=== PATIENT | female | born 2005 | race Hispanic/Latino ===

== ENCOUNTER 2024-08-01 17:14 | Emergency (ER) | payer OTHER, SELFPAY ==
[2024-08-01 17:16] VITALS: BP 128/75
[2024-08-01 17:35] LABS: % Basophils 0.4 % (0-2); % Eosinophils 3.6 % (0-6); % Immature Granulocytes 0.4 % (0-0.5); % Monocytes 8.4 % (1.7-9.3); % Neutrophils 50.2 % (42.2-75.2); Absolute Eosinophils 0.3 10^3/uL (0-0.7); Absolute Lymphocytes 2.9 10^3/uL (1.2-3.4); Absolute Monocytes 0.7 10^3/uL (0.1-0.6); Absolute Neutrophils 3.9 10^3/uL (1.4-6.5); Hematocrit 40.1 % (37.0-47.0); Hemoglobin 13.2 g/dL (12.0-16.0); Mean Corp Hgb Conc. 32.9 g/dL (33.0-37.0); Mean Corpuscular Hgb 27.2 pg (27.0-31.0); Mean Corpuscular Volume 82.7 fL (81.0-99.0); Nucleated Red Blood Cells % 0 %; Platelet Count 274 10^3/uL (130-400); Red Blood Cell Count 4.85 10^6/uL (4.20-5.40); Red Cell Dist. Width 13.5 % (11.5-14.5); White Blood Cell Count 7.8 10^3/uL (4.8-10.8)
[2024-08-01 17:45] LABS: HCG, Serum Qualitative Screen Negative
[2024-08-01 17:50] LABS: ALT (SGPT) 46 U/L (0-35); AST (SGOT) 26 U/L (14-36); Albumin 4.2 g/dl (3.5-5.0); Alkaline Phosphatase 86 U/L (38-126); Blood Urea Nitrogen 9 mg/dl (7-17); Calcium 9.5 mg/dl (8.4-10.2); Carbon Dioxide 24 mmol/L (22-30); Chloride 104 mmol/L (98-107); Glucose 101 mg/dl (70-99); Lipase 77 U/L (23-300); Potassium 4.3 mmol/L (3.5-5.1); Sodium 137 mmol/L (135-145); Total Bilirubin 0.3 mg/dl (0.2-1.3); Total Protein 7.1 g/dl (6.3-8.2); eGFR > 60.00
[2024-08-01 17:56] LABS: Urine Albumin 1+ (Neg - Trace); Urine Bilirubin Negative (Negative); Urine Character Clear (Clear); Urine Color Yellow; Urine Glucose Negative (Negative); Urine Ketone Negative (Negative); Urine Leukocyte Negative (Negative); Urine Nitrite Negative (Negative); Urine Occult Blood 1+ (Negative); Urine Specific Gravity 1.025 (<1.030); Urine Urobilinogen Negative (Neg - 1+)
[2024-08-01 18:22] LABS: Urine Bacteria Few (Negative); Urine Red Blood Cell 0-2 /HPF (0-2); Urine Squamous Cell 21-25 /LPF (Few); Urine White Cell 0-2 /HPF (0-5)
--- NOTE | 2024-08-01 18:45 | ED.GENMED ---
History of Present Illness
General
Chief Complaint: Abdominal Pain
Source: patient
Time Seen by Provider: 08/01/24 18:29
History of Present Illness
History of Present Illness:
This patient is a 19-year-old female presents emergency department complaints of pain. She states she first noted what felt like menstrual cramps on evening. She felt fine on Friday and then Friday evening she developed pain in the
periumbilical and just to the left of that area. She notes it is much worse when she stands up and walks or moves around. She describes it as a 'pulling' sensation. She says now her back is starting to hurt because she has been hunched over when
walking because it hurts so much. Her last menstrual period was June 28 and she notes that she has a history of irregular periods she denies vaginal bleeding or discharge. She denies urinary symptoms, flank pain, chest pain, dyspnea, nausea,
vomiting, fever, chills, or other complaints.
Past History
Past History
ED Past Surgical History: None
Social History
Tobacco: Non-smoker
Alcohol: None
Drug: None
Personal: Single
Living: with family
Employment: Employed
Phy Exam
Physical Exam
Physical Exam:
GENERAL: Alert , in no apparent distress
EYE: pupils equal and reactive
NECK: Supple, no significant adenopathy.
ENT: o/p clr, mmm.
CARDIAC: Regular rate and rhythm .
LUNGS: Clear breath sounds bilaterally, no acute respiratory distress, no wheezes/rales/rhonchi
ABDOMEN: Soft, mild periumbilical and left mid quadrant tenderness, no r/g, no cvat
NEUROLOGICAL: Alert and oriented, no focal neuro deficits
SKIN: Warm and dry, skin intact.
MUSCULOSKELETAL: No edema, well perfused.
PSYCH: Normal and appropriate interaction.
Course
Orders/Labs/Results
Orders:
Orders
08/01/24 17:15
Test Result ONCE
08/01/24 17:26
Complete Blood Count/With Diff Urgent
Comprehensive Metabolic Panel Urgent
HCG, Serum Qualitative Screen Urgent
Lipase Urgent
08/01/24 17:28
Urinalysis Reflex To Culture Urgent
Date Specimen was Collected: 08/01/24
Time Specimen was Collected: 17:16
Urine Microscopic Reflex Cult Urgent
08/01/24 18:44
CT Abd/Pel (IV only)-DH only Urgent
Comment:
Reason For Exam: periumbilical/L sided abd pain
Ketorolac [Toradol] 15 mg IV NOW STA
Abnormal Lab Results
08/01/24 08/01/24
17:26 17:28
MCHC 32.9 L g/dL
(33.0-37.0)
Absolute Monos (auto) 0.7 H 10^3/uL
(0.1-0.6)
Creatinine 0.5 L mg/dL
(0.6-1.0)
Glucose 101 H mg/dl
(70-99)
ALT 46 H U/L
(0-35)
Ur Occult Blood Reflex 1+ A
(Negative)
Urine Bacteria (Reflex) Few A
(Negative)
Urine Albumin (Reflex) 1+ A
(Neg - Trace)
08/01/24 17:26
08/01/24 17:26
Vital Signs
Initial and Last Documented VS:
Initial Vital Signs
Temp Pulse Resp BP Pulse Ox
98.3 F 91 18 128/75 99
08/01/24 17:16 08/01/24 17:16 08/01/24 17:16 08/01/24 17:16 08/01/24 17:16
Last Documented Vital Signs
Temp Pulse Resp BP Pulse Ox
98.3 F 86 18 123/72 98
08/01/24 17:16 08/01/24 19:03 08/01/24 17:16 08/01/24 19:03 08/01/24 19:03
*Critical Care Note
Total Time (30-74mins, 75-104mins- exclusive of procedures): Not Applicable
Update Note
Update Note:
Patient presents to the Emergency Department with __abdominal pain
Number and Complexity of Problems Addressed at the Encounter
� Chronic conditions affecting care:
� Acute Exacerbation and/or Progression of Chronic Illness:
� Differential Diagnosis includes: But not limited to hernia, muscle strain, appendicitis, diverticulitis, kidney stone, etc. etc.
Amount and/or Complexity of Data to be Reviewed and Analyzed
� I performed an independent evaluation of and my interpretation is:
EKG:
CT:No CT evidence for an acute inflammatory process in the abdomen or pelvis.
2.3 cm corpus luteal cyst in the right ovary. Questioned mild right hydrosalpinx versus a small amount of free fluid in the pelvis adjacent to the right adnexa.
Hepatic steatosis.
Xrays:
Laboratory Studies:generally unremarkable
Other:
� Review of other/old records reveals:
� Clinical information was obtained by an independent historian:
� Prescriptions/Medications Considered but not given:
� Further testing considered but not performed:
Risk of Complications and/or Morbidity or Mortality of Patient Management
� Social determinants of health affecting care:
� Discussion with other providers (PCP, Hospitalists, Consultants, etc):
� Escalation of care including admission/observation vs risk of discharge considered: 10:09 PM girlfriend now present and bedside. Results discussed with both of them including incidental pelvic findings which will require
gynecology follow-up. Patient will be given a copy of her report and referral for gynecology follow-up. I do not suspect that these findings are the source of her mid abdominal discomfort. Patient states she feels much better. No new symptoms.
Nontoxic and well-appearing. Discussed with patient importance of follow-up and reasons return to the ER.
ED Attending Note
-
Portions of this chart may have been created with voice recognition software.� Occasional wrong word or��sound alike� substitutions may have occurred due to the inherent limitations of voice recognition software.
Discharge Plan
Departure
Patient Disposition: Home (Routine Discharge)
Date of Disposition: 08/01/24
Time of Disposition: 22:10
Patient with high blood pressure during this ER visit?: Yes
Condition: Good
Discharge Problem:
Abdominal pain
Instructions: Abdominal Pain, BLOOD PRESSURE
Prescriptions:
No Action
albuterol sulfate [Proventil HFA] 90 MCG/PUFF HFA aerosol inhaler
1 puff inhalation Q4HPRN PRN (Reason: shortness of breath) Qty: 1 0RF
ondansetron 4 mg tablet,disintegrating
4 mg PO Q8H PRN (Reason: nausea and vomiting) Qty: 15 0RF
Referrals:
Corrie Palacios MD [Active] - Next open appointment
NONE,* [Family Provider] -
Activity Restrictions/Additional Instructions:
PLEASE SEE ATTACHED LABS AND CAT SCAN REPORT. YOU HAVE FINDINGS ON HER CAT SCAN THAT REQUIRE PROMPT ASSESSMENT BY THE FAMILY LAWYER. IF YOU DEVELOP NEW, RECURRENT, OR WORSENING PAIN, NAUSEA, VOMITING, FEVER, CHILLS, VAGINAL DISCHARGE, DIFFICULTY
URINATING, PAIN WITH URINATION, OR OTHER WORRISOME SIGNS, PLEASE RETURN TO THE ER IMMEDIATELY.
Interventions
Interventions:
*Risk Screen - Suicide Last Done: 08/01/24 17:16
*General Assessment Last Done: 08/01/24 17:16
*Neglect/Abuse Screening Last Done: 08/01/24 17:16
ED- Fall Risk Assessment Last Done: 08/01/24 18:25
*ED COVID-19 Vaccine History Last Done: 08/01/24 17:16
EY-Wusjkj-Pnvhnurexp Assessment Last Done: 08/01/24 18:19
Discharge Date and Time
Print Language: PASHTO
[2024-08-01] MEDS: TORADOL 15 MG IV (18:58)
[2024-08-01 19:03] VITALS: BP 123/72
== END 2024-08-01 22:32 | disposition home or self-care (01) ==
LOC: EMR 17:14
PROVIDERS: EMERGENCY PHYSICIAN Emergency Medicine
DX: R10.33 Periumbilical pain (principal); M54.9 Dorsalgia, unspecified; R03.0 Elevated blood-pressure reading, without diagnosis of hypertension; N92.6 Irregular menstruation, unspecified; N83.201 Unspecified ovarian cyst, right side; K76.0 Fatty (change of) liver, not elsewhere classified
CPT/HCPCS: 99284; 96374; 74177; 80053; 81003; 81015; 83690; 84703; 85025; Q9967

== ENCOUNTER 2024-11-04 07:17 | Emergency (ER) | payer SELFPAY ==
[2024-11-04 07:20] VITALS: BP 132/76
--- NOTE | 2024-11-04 07:40 | ED.GENMED ---
History of Present Illness
General
Chief Complaint: Ear Problem
Source: patient
Exam Limitations: none
Time Seen by Provider: 11/04/24 07:22
History of Present Illness
History of Present Illness:
19yoF with no significant past medical history presenting for evaluation of right ear pain. Patient has been having URI symptoms over the past 2 weeks. She initially had fevers which have resolved. Her URI seems to be resolving. She has started
to experience pain in her right ear after waking up from a nap yesterday afternoon. The pain became severe overnight and is described as a throbbing pain. She tried Tylenol and Aleve without much relief. She denies any hearing loss or ear
drainage. 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
Past History
Past History
ED Past Medical History: Other (PNA)
ED Past Surgical History: None
Social History
Tobacco: Non-smoker
Alcohol: None
Drug: None
Personal: Single
Living: with family
Employment: Employed
Phy Exam
General Physical Exam
General Presentation: well appearing and no apparent distress
General Skin: warm and dry
General Habitus: normal
General Mental: alert
ENT Exam
ENT Exam: pharynx normal, neck supple, normocephalic and other (R TM is erythematous and bulging. No canal edema or tenderness with palpation of tragus/traction of pinna. No mastoid erythema/edema/tenderness.)
Cardiovascular Exam
Cardiovascular Exam: regular rate/rhythm
Pulmonary Exam
Pulmonary Exam: lungs clear, no respiratory distress, no rales, no crackles, no rhonchi and no wheezing
Neurological Exam
Neurological Exam: alert
Skin Exam
Skin Exam: normal color and warm/dry
Psychiatric Exam
Psychiatric Exam: normal mood/affect
Course
Vital Signs
Initial and Last Documented VS:
Initial Vital Signs
Temp Pulse Resp BP Pulse Ox
98.0 F 77 16 132/76 98
11/04/24 07:20 11/04/24 07:20 11/04/24 07:20 11/04/24 07:20 11/04/24 07:20
Last Documented Vital Signs
Temp Pulse Resp BP Pulse Ox
98.0 F 77 16 132/76 98
11/04/24 07:20 11/04/24 07:20 11/04/24 07:20 11/04/24 07:20 11/04/24 07:20
MDM/Problems Addressed
Differential Diagnosis Includes:
19yoF here with R ear pain since yesterday. Recently recovered from a URI. VSS. R tympanic membrane is erythematous and bulging consistent with acute otitis media. No clinical evidence of otitis externa or mastoiditis. Patient started on a course of
Augmentin. Supportive care discussed and advised f/u with PCP. Patient discharged in stable condition.
*Critical Care Note
Total Time (30-74mins, 75-104mins- exclusive of procedures): Not Applicable
ED Attending Note
-
Portions of this chart may have been created with voice recognition software.� Occasional wrong word or��sound alike� substitutions may have occurred due to the inherent limitations of voice recognition software.
Discharge Plan
Departure
Patient Disposition: Home (Routine Discharge)
Date of Disposition: 11/04/24
Time of Disposition: 07:42
Patient with high blood pressure during this ER visit?: No
Discharge Problem:
Acute right otitis media
Instructions: Ear infections in adults
Prescriptions:
New
amoxicillin-pot clavulanate 875-125 mg tablet
1 tab PO BID Qty: 14 0RF
No Action
albuterol sulfate [Proventil HFA] 90 MCG/PUFF HFA aerosol inhaler
1 puff inhalation Q4HPRN PRN (Reason: shortness of breath) Qty: 1 0RF
ondansetron 4 mg tablet,disintegrating
4 mg PO Q8H PRN (Reason: nausea and vomiting) Qty: 15 0RF
Stand Alone Forms: Return to Work
Activity Restrictions/Additional Instructions:
Take antibiotics as prescribed. Take Tylenol 650mg and ibuprofen 600mg every 6 hours as needed for pain.
Please follow-up with your family doctor. Return to the ER with any new or worsening symptoms.
Interventions
Interventions:
*Risk Screen - Suicide Last Done: 11/04/24 07:20
*General Assessment Last Done: 11/04/24 07:20
*Neglect/Abuse Screening Last Done: 11/04/24 07:55
*ED- Fall Risk Assessment Last Done: 11/04/24 07:55
*ED COVID-19 Vaccine History Last Done: 11/04/24 07:54
*Nursing Disposition Last Done: 11/04/24 07:55
Discharge Date and Time
Discharge Date/Time: 11/04/24 07:56
Print Language: PORTUGUESE
== END 2024-11-04 07:56 | disposition home or self-care (01) ==
LOC: EMR 07:17
PROVIDERS: EMERGENCY PHYSICIAN Emergency Medicine; FAMILY PHYSICIAN Family Medicine
DX: H66.91 Otitis media, unspecified, right ear (principal); Z87.01 Personal history of pneumonia (recurrent)
CPT/HCPCS: 99283